=== PATIENT | female | born 1975 | race Asian ===

== ENCOUNTER 2016-04-20 01:59 | Inpatient (IN) | payer OTHER ==
[2016-04-20] VITALS (10 sets, daily range): BP systolic 103–138; RESP 16; TEMP 97.7; BMI 29.3
[~2016-04-20] VITALS: Ht 152.4 cm; Wt 68.0 kg
[2016-04-20] MEDS ORDERED: PENICILLIN G 5 MU in SODIUM CHLORIDE 0.9% 250 ML IV ONE (02:45)
[2016-04-20] MEDS ORDERED: FENTANYL 100 MCG/2 ML AMP IV PRN (02:45)
[2016-04-20] MEDS ORDERED: LIDOCAINE 1% BUFFERED 1 ML SYR INTRADERM PRN (02:45)
[2016-04-20] MEDS ORDERED: TERBUTALINE 1 MG/ML VIAL SUBQ PRN (02:45)
[2016-04-20] MEDS ORDERED: ONDANSETRON 4 MG VIAL IV PRN (02:45)
[2016-04-20] MEDS ORDERED: FAMOTIDINE 20 MG TAB PO PRN (02:45)
[2016-04-20] MEDS ORDERED: METOCLOPRAMIDE 10 MG/2 ML VIAL IV PUSH PRN (02:45)
[2016-04-20] MEDS ORDERED: OXYTOCIN 15 UNITS/250 ML NS 250 ML IV SCH ×2 (02:45→08:50)
[2016-04-20] MEDS ORDERED: MORPHINE 2 MG/ML SYR IV PRN (02:45)
[2016-04-20] MEDS ORDERED: FAMOTIDINE 20 MG INJ IV PRN (02:45)
[2016-04-20] MEDS ORDERED: ALU/MAG/SIM 30 ML UDC PO PRN (02:45)
[2016-04-20] MEDS ORDERED: CEFAZOLIN (LD/OB) 100 ML IV PRN (02:45)
[2016-04-20] MEDS ORDERED: LACT RINGERS 1,000 ML IV SCH (02:45)
[2016-04-20] MEDS ORDERED: LIDOCAINE 1% 30 ML PF INFILTRATE ONE (02:45)
[2016-04-20] MEDS ORDERED: ACETAMINOPHEN 325 MG TAB PO PRN (02:45)
[2016-04-20] MEDS ORDERED: PROMETHAZINE 25 MG/ML VIAL IV PRN (02:45)
[2016-04-20] MEDS ORDERED: LIDOCAINE 1% 30 ML PF ONE (03:35)
[2016-04-20] MEDS ORDERED: PENICILLIN G 2.5 MU in SODIUM CHLORIDE 0.9% 100 ML IV SCH (07:00)
[2016-04-20] MEDS ORDERED: ZOLPIDEM 5 MG TAB PO PRN (08:50)
[2016-04-20] MEDS ORDERED: MEASLES,MUMPS,RUBELLA VAC SUBQ.VACC ONE (08:50)
[2016-04-20] MEDS ORDERED: ASTRINGENT MED PADS 40'S TOPICAL PRN (08:50)
[2016-04-20] MEDS ORDERED: SALINE FLUSH 10 ML FLUSH PRN (08:50)
[2016-04-20] MEDS ORDERED: SODIUM CHLORIDE 0.9% FLUSH BAG 500 ML IV PRN (08:50)
[2016-04-20] MEDS ORDERED: MAG HYDROX 30 ML UDC PO PRN (08:50)
[2016-04-20] MEDS ORDERED: MISOPROSTOL 200 MCG TAB RECTAL ONE (08:50)
[2016-04-20] MEDS: Ibuprofen 800 MG TAB PO SCH ×2 (08:50→16:45)
[2016-04-20] MEDS ORDERED: DERMOPLAST SPRAY TOPICAL PRN (08:50)
[2016-04-20] MEDS ORDERED: TDaP 0.5 ML VIAL IM.VACC ONE (08:50)
[2016-04-20] MEDS ORDERED: MISOPROSTOL 100 MCG TAB ONE (08:59)
[2016-04-20] MEDS: DOCUSATE SOD 100 MG CAP PO SCH (09:00)
[2016-04-20] MEDS: SALINE FLUSH 10 ML FLUSH SCH (20:00)
[2016-04-21 02:30] VITALS: BP_SYST 102; RESP 16; TEMP 97.6
[2016-04-21 05:26] VITALS: BP_SYST 104; RESP 16; TEMP 97.9
[2016-04-21] MEDS: SALINE FLUSH 10 ML FLUSH SCH ×2 (08:00→20:00)
[2016-04-21] MEDS: DOCUSATE SOD 100 MG CAP PO SCH (08:38)
[2016-04-21] MEDS: Ibuprofen 800 MG TAB PO SCH ×3 (08:39→17:41)
[2016-04-21 09:12] VITALS: BP_SYST 116; RESP 18; TEMP 98
[2016-04-21 17:42] VITALS: BP_SYST 128; TEMP 97.9
[2016-04-21 17:43] VITALS: RESP 16
[2016-04-22 05:12] VITALS: BP_SYST 112; RESP 20; TEMP 98.1
[2016-04-22] MEDS: DOCUSATE SOD 100 MG CAP PO SCH (08:26)
[2016-04-22] MEDS: Ibuprofen 800 MG TAB PO SCH ×2 (08:27)
[2016-04-22 09:17] VITALS: BP_SYST 126; RESP 14; TEMP 97.4
[2016-04-22 10:17] VITALS: BP_SYST 126; RESP 14; TEMP 97.4
== END 2016-04-22 12:04 | disposition home or self-care (01) | DRG 775 ==
LOC: LDOP 01:59 → LD 02:38 → OB 16:50
PROVIDERS: ADMIT Obstetrics & Gynecology; ATTEND Obstetrics & Gynecology
PROC: 10E0XZZ Delivery of Products of Conception, External Approach (ICD-10-PCS; principal; 2016-04-20)
CPT/HCPCS: 82803; 85025; 86850; 86900; 86901